=== PATIENT | male | born 1950 | race Caucasian/White ===

== ENCOUNTER → 2022-04-06 08:19 | Outpatient (CLI) | payer MEDICARE, BC, SELFPAY ==
[2022-04-06 10:10] LABS: COVID19 -Nasal RAPID Negative (Negative)
--- NOTE | 2022-04-06 19:21 | DI.NM.S_ITS ---
DATE OF SERVICE: PROCEDURE: Exercise perfusion study. INDICATION: Paroxysmal atrial fibrillation, shortness of breath, moderate mitral regurgitation. RADIOPHARMACEUTICAL: 24.7 mCi technetium-99m Myoview IV was injected at stress and 11.6 mCi technetium-99m Myoview IV was injected at rest. CARDIAC STRESS: The patient underwent exercise perfusion study under the supervision of an attending staff. The patient walked on Aldo protocol for 7 minutes and 15 seconds, achieved maximum heart rate of 145, which was 98% of target heart rate. Resting blood pressure 128/78 and peak blood pressure 180/110 mmHg suggestive of hypertensive blood pressure response. 8.1 METs of workload and ELVIS -11 percent. Baseline rhythm sinus with intermittent PVCs. During exercise, PVCs got suppressed however reappeared in recovery in the form of bigeminy. No ventricular tachycardia or atrial fibrillation. No inducible ischemic electrocardiographic changes during stress. No chest pain. The patient had dyspnea during exercise. RAW DATA: There is increased subdiaphragmatic activity. The patient's weight is 193 pounds. Bowel loops seen near the inferior border of the heart. GATED STUDY: Stress LV ejection fraction 55 percent without any obvious wall motion abnormalities. Resting end-diastolic volume 191 mL. TID ratio 0.98, which is within normal limits. Lung/heart ratio 0.32, which is within normal limits. Resting LV ejection fraction reported to be 56 percent. MYOCARDIAL PERFUSION: Stress supine, resting supine, and stress prone images were compared to each other. Stress supine and resting supine images revealed large size, moderate to severely decreased perfusion of inferior wall, inferior apex, as well as basal inferior septum, which got significantly improved during stress prone images suggestive of tissue attenuation artifact. No convincing ischemia or infarction pattern seen. CONCLUSION: I will call this study likely a normal myocardial perfusion study with evidence of tissue attenuation artifact, which got significantly improved during stress prone images, as stated above. Fair exercise tolerance. Functional aerobic impairment -11 percent. Hypertensive blood pressure response. Stress left ventricular ejection fraction 55 percent. Resting intermittent premature ventricular contractions with sinus rhythm which got suppressed during exercise and reappeared in recovery without any ventricular tachycardia. No obvious atrial fibrillation. No chest discomfort. The patient had shortness of breath. Overall low-risk myocardial perfusion scan. Johnathon Dave - KAMALJIT/ryan/HUSAM doc#: [id number]/job#: [id number] dd: 04/06/2022 17:04:00 dt: 04/06/2022 19:07:00 DICTATING MD/COPIES TO: Jason Acosta MD COPIES MNE: RIGOBERTO;
== END ==
PROVIDERS: Family Provider Family Medicine Geriatric Medicine; PCP Family Medicine; Referring Provider Nurse Practitioner; Visit Provider Nurse Practitioner
DX: I48.0 Paroxysmal atrial fibrillation (principal); I34.0 Nonrheumatic mitral (valve) insufficiency; R06.09 Other forms of dyspnea; R06.02 Shortness of breath; Z20.822 Contact with and (suspected) exposure to COVID-19
CPT/HCPCS: 78452; 87635; 93017; A9502

== ENCOUNTER → 2025-03-19 11:23 | Outpatient (CLI) | payer MEDICARE, BC, SELFPAY ==
--- NOTE | 2025-03-19 11:32 | DI.US.S_ITS ---
PROCEDURE: US EXTREMITY NONVASC LOWER RT INDICATIONS: 6 DAYS POST CARDIAC CATH; PAIN RIGHT GROIN TECHNIQUE: Real-time scanning was performed of the right groin, with image documentation. Color Doppler was also utilized. COMPARISON: None. FINDINGS: Within the right groin, no hematoma or hernia can be seen. No findings of pseudoaneurysm. No fluid collection can be seen. No significant vascular abnormality is seen. IMPRESSION: No significant abnormality of the right groin can be seen. No post catheterization complication is seen. Dictated by: Lexa Cabrera M.D. on 03/19/2025 at 11:58 Approved by: Lexa Cabrera M.D. on 03/19/2025 at 11:59
== END ==
LOC: US 11:29
PROVIDERS: Family Provider Family Medicine Geriatric Medicine; PCP Family Medicine; Referring Provider Family Medicine; Visit Provider Family Medicine
DX: R10.31 Right lower quadrant pain (principal); G89.18 Other acute postprocedural pain; S00-T88 Injury, poisoning and certain other consequences of external causes
CPT/HCPCS: 76882